=== PATIENT | male | born 1990 ===

== ENCOUNTER 2025-01-20 18:28 | Outpatient (REF) | payer OTHER, SELFPAY ==
[2025-01-20 15:42] LABS: ALT 19 U/L (16-63); AST 16 U/L (15-37); Albumin 4.5 g/dL (3.4-5.0); Alkaline Phosphatase 78 U/L (46-116); Anion Gap 10.2 mmol/L (3-11); BUN 12 mg/dL (7-18); Bilirubin, Total 0.8 mg/dL (0.2-1.0); CO2 28.8 mmol/L (21.0-32.0); Calcium 9.3 mg/dL (8.5-10.1); Chloride 102 mmol/L (98-107); Cholesterol 147 mg/dL (<200); Estimated GFR 101.92 (mL/min/1.73m2); Glucose 80 mg/dL (74-106); Potassium 4.2 mmol/L (3.5-5.1); Sodium 141 mmol/L (136-145); Total Protein 7.6 g/dL (6.4-8.2); Triglyceride 79 mg/dL (<150)
[2025-01-21 05:03] LABS: Calculated LDL 89 mg/dL (<100); HDL Cholesterol 43 mg/dL (>or=40)
== END 2025-01-20 18:29 | disposition home or self-care (01) ==
LOC: NCHCN 18:28
PROVIDERS: Visit Provider Family Medicine
DX: R03.0 Elevated blood-pressure reading, without diagnosis of hypertension (principal)
CPT/HCPCS: 80053; 80061